=== PATIENT | male | born 1940 ===

== ENCOUNTER 2022-08-10 13:01 | Outpatient (CLI) | payer OTHER ==
[~2022-08-10 13:01] MED LIST: ASA81 MG; GLUMETZA1000 MG; LOSARTAN POTASS50 MG; NAMENDA10 MG; NEURONTIN600 MG; PROSCAR5 MG; TOPROL XL100 M1
== END 2022-08-10 13:04 | disposition home or self-care (01) ==
LOC: NUCLEAR 13:01
PROVIDERS: ATTEND Internal Medicine
DX: F01.50 Vascular dementia, unspecified severity, without behavioral disturbance, psychotic disturbance, mood disturbance, and anxiety (principal)
CPT/HCPCS: 78803; A9557